=== PATIENT | female | born 1960 | race Caucasian/White ===

== ENCOUNTER 2018-08-23 23:36 | Emergency (ER) | payer MEDICARE, MEDICAID ==
[~2018-08-23] VITALS: Ht 154.9 cm; Wt 59.1 kg
[2018-08-23 23:37] VITALS: TEMP 97.6
[2018-08-23 23:54] LABS: BASO # 0.1 (0.0-0.2); BASO % 0.5 % (0.0-2.0); EOS # 0.4 (0.0-0.7); EOS % 2.6 % (0-4.0); GRAN # 12.5 (1.4-6.5); GRAN % 77.9 % (42.2-75.2); HEMATOCRIT 44.6 % (37.0-47.0); HEMOGLOBIN 14.9 g/dl (12.5-16.0); LYMPH % 12.7 % (20.0-51.0); MEAN CELL VOLUME 95 fl (80.0-100.0); MEAN CORPUSCULAR HEMOGLOBIN 32 pg (27.0-31.0); MEAN CORPUSCULAR HGB CONC 33 g/dl (33.0-37.0); MEAN PLATELET VOLUME 10.1 fl (7.4-10.4); MONO # 0.9 (0.1-0.6); MONO % 5.8 % (1.7-9.3); PLATELET COUNT 237 K/mm3 (130-400); RED BLOOD COUNT 4.69 M/mm3 (4.10-5.30); REDCELL DISTRIBUTION WIDTH-CV 13.4 % (11.5-14.5)
[2018-08-24] LABS: INR 0.9 (0.8-3.0); PROTHROMBIN TIME 10.7 SECONDS (9.7-12.8)
[2018-08-24 00:02] LABS: PARTIAL THROMBOPLASTIN TIME 25.1 SECONDS (26.0-37.0)
[2018-08-24 00:15] LABS: CREATININE, serum 1.27 mg/dL (0.52-1.25); POTASSIUM 4.2 mmol/L (3.4-5.0)
[2018-08-24 00:16] LABS: ALBUMIN 4.2 gm/dL (3.5-5.0); BILIRUBIN,TOTAL 0.7 mg/dL (0.0-1.0); TOTAL PROTEIN 7.6 gm/dL (6.4-8.2)
[2018-08-24 00:27] LABS: TROPONIN-I 0.029 ng/mL (0.000-0.034)
[2018-08-24] MEDS ORDERED: NITROSTAT0.4 MG/TAB SL (02:04)
[2018-08-24] MEDS ORDERED: ULTRAM 50MG TAB50 MG PO (02:05)
[2018-08-24] MEDS ORDERED: ZANTAC 150MG T150 MG PO (02:05)
[2018-08-24] MEDS ORDERED: ATIVAN 1MG T1 MG/TAB PO (02:06)
[2018-08-24] MEDS ORDERED: ASPIRIN 32325 MG/TAB PO (02:08)
[2018-08-24 04:22] VITALS: BP 134/91; PULSE 117
== END 2018-08-24 04:22 | disposition short-term general hospital (02) ==
LOC: COL.ER 23:36
PROVIDERS: Family Medicine
DX: I21.4 Non-ST elevation (NSTEMI) myocardial infarction (principal); I25.10 Atherosclerotic heart disease of native coronary artery without angina pectoris; Z95.5 Presence of coronary angioplasty implant and graft; Z87.891 Personal history of nicotine dependence
CPT/HCPCS: J1170; J1644; J2405; J3010; J7030; Q9967